=== PATIENT | female | born 1960 | race Caucasian/White ===

== ENCOUNTER 2021-01-04 11:47 | Day surgery (SDC) | payer MEDICARE, OTHER ==
[~2021-01-04] VITALS: Ht 165.1 cm; Wt 62.0 kg
[2021-01-04] MEDS ORDERED: AMLO10 (12:21)
[2021-01-04] MEDS ORDERED: ALBU2.5V5 (12:23)
[2021-01-04] MEDS ORDERED: Biotin800 MCG (12:23)
[2021-01-04] MEDS ORDERED: TUMS500 MG (12:24)
[2021-01-04] MEDS ORDERED: Calcium + Vita1 EACH (12:24)
[2021-01-04] MEDS ORDERED: DILT30 (12:25)
[2021-01-04] MEDS ORDERED: GABA400 (12:26)
[2021-01-04] MEDS ORDERED: ONE-A-DAY VIT200 MC1 (12:26)
[2021-01-04] MEDS ORDERED: EUTHYROX88 MCG (12:26)
[2021-01-04] MEDS ORDERED: OMEP20ER (12:27)
[2021-01-04] MEDS ORDERED: K-Dur20 MEQ (12:27)
[2021-01-04] MEDS ORDERED: ANORO ELLIPTA1 EACH (12:28)
[2021-01-04] MEDS ORDERED: PROM25 (12:28)
[2021-01-04] MEDS ORDERED: QUET200 (12:28)
== END 2021-01-04 14:25 | disposition home or self-care (01) ==
LOC: ORSCSDS 11:47
PROVIDERS: Internal Medicine Gastroenterology
PROC: 0DB68ZX Excision of Stomach, Via Natural or Artificial Opening Endoscopic, Diagnostic (ICD-10-PCS; principal; 2021-01-04 13:30)
DX: K70.30 Alcoholic cirrhosis of liver without ascites (principal); I85.10 Secondary esophageal varices without bleeding; K31.7 Polyp of stomach and duodenum; K21.9 Gastro-esophageal reflux disease without esophagitis; J44.9 Chronic obstructive pulmonary disease, unspecified; Z99.81 Dependence on supplemental oxygen; Z79.899 Other long term (current) drug therapy; F17.210 Nicotine dependence, cigarettes, uncomplicated
CPT/HCPCS: 88305; 88342; J2704; J7120

== ENCOUNTER → 2021-06-24 | Outpatient (CLI) | payer MEDICARE, OTHER ==
[~2021-06-24] MED LIST: ALBU2.5V5; AMLO10; ANORO ELLIPTA1 EACH; Biotin800 MCG; Calcium + Vita1 EACH; DILT30; EUTHYROX88 MCG; GABA400; K-Dur20 MEQ; OMEP20ER; ONE-A-DAY VIT200 MC1; PROM25; QUET200; TUMS500 MG
[2021-06-26 17:11] LABS: HPV 16 Negative (Negative); HPV 18 Negative (Negative); HPV OTHER HR TYPES Positive (Negative)
== END ==
LOC: LAB SHORT 15:10 → LAB 15:10
PROVIDERS: Advanced Practice Midwife
DX: Z01.419 Encounter for gynecological examination (general) (routine) without abnormal findings (principal); Z88.1 Allergy status to other antibiotic agents
CPT/HCPCS: 87624; G0123

== ENCOUNTER 2022-05-01 09:15 | Day surgery (SDC) | payer MEDICARE, OTHER ==
[~2022-05-01] VITALS: Ht 165.1 cm; Wt 52.8 kg
== END 2022-05-01 11:55 | disposition home or self-care (01) ==
LOC: ORSCSDS 09:15
PROVIDERS: Internal Medicine Gastroenterology
PROC: 0DB78ZX Excision of Stomach, Pylorus, Via Natural or Artificial Opening Endoscopic, Diagnostic (ICD-10-PCS; principal; 2022-05-01 10:00)
PROC: 0DB98ZX Excision of Duodenum, Via Natural or Artificial Opening Endoscopic, Diagnostic (ICD-10-PCS; principal; 2022-05-01 10:00)
PROC: 0DJD8ZZ Inspection of Lower Intestinal Tract, Via Natural or Artificial Opening Endoscopic (ICD-10-PCS; principal; 2022-05-01 10:00)
DX: R11.2 Nausea with vomiting, unspecified (principal); R63.4 Abnormal weight loss; K31.7 Polyp of stomach and duodenum; Z80.0 Family history of malignant neoplasm of digestive organs; I10 Essential (primary) hypertension; J44.9 Chronic obstructive pulmonary disease, unspecified; F17.210 Nicotine dependence, cigarettes, uncomplicated; K21.9 Gastro-esophageal reflux disease without esophagitis; Z86.73 Personal history of transient ischemic attack (TIA), and cerebral infarction without residual deficits; E03.9 Hypothyroidism, unspecified; M79.7 Fibromyalgia; K74.60 Unspecified cirrhosis of liver; Z99.81 Dependence on supplemental oxygen; Z79.899 Other long term (current) drug therapy; K44.9 Diaphragmatic hernia without obstruction or gangrene; K64.4 Residual hemorrhoidal skin tags
CPT/HCPCS: 88305; 88342; 93005; 93010; J2405; J2704; J7120

== ENCOUNTER → 2022-09-25 | Outpatient (CLI) | payer MEDICARE, OTHER ==
[2022-09-29 17:09] LABS: HPV 16 Negative (Negative); HPV 18 Negative (Negative); HPV OTHER HR TYPES Positive (Negative)
== END | disposition home or self-care (01) ==
LOC: RAD SHORT 14:25 → LAB 14:25
PROVIDERS: Advanced Practice Midwife
DX: Z01.419 Encounter for gynecological examination (general) (routine) without abnormal findings (principal)
CPT/HCPCS: 87624; 88175

== ENCOUNTER 2023-07-14 13:11 | Emergency (ER) | payer MEDICARE, OTHER ==
[~2023-07-14] VITALS: Ht 165.1 cm; Wt 59.0 kg
[2023-07-14 14:01] LABS: EOSINOPHILS ABSOLUTE AUTO 0.02 K/mm3 (0.00-0.68); EOSINOPHILS PERCENT AUTO 0 % (0-6); IMMATURE GRAN PERCENT AUTO 0 % (0-1); MONOCYTES PERCENT AUTO 6 % (4-13); Platelet Count 153 K/mm3 (150-400)
[2023-07-14 14:16] LABS: BASOPHILS ABSOLUTE AUTO 0.02 K/mm3 (0.00-0.23); BASOPHILS PERCENT AUTO 0 % (0-2); Hemoglobin 19.8 g/dL (11.5-16.0); IMMATURE GRAN ABSOLUTE AUTO 0.04 K/mm3 (0.00-0.10); LYMPHOCYTES ABSOLUTE AUTO 0.71 K/mm3 (0.84-5.20); LYMPHOCYTES PERCENT AUTO 6 % (21-46); MONOCYTES ABSOLUTE AUTO 0.65 K/mm3 (0.16-1.47); Mean Corpuscular HGB 31.3 pg (26.0-34.0); Mean Corpuscular HGB Conc 35.7 g/dL (31.5-36.5); Mean Corpuscular Volume 88 fL (80-100); Mean Platelet Volume 10.4 fL (9.1-12.4); NEUTROPHILS ABSOLUTE AUTO 9.96 K/mm3 (1.96-9.15); NEUTROPHILS PERCENT AUTO 87 % (41-73); RDW Coefficient Variation 14.5 % (11.7-14.2); RDW Standard Deviation 44.7 fL (35.1-46.3); Red Blood Cell Count 6.33 M/mm3 (3.80-5.20)
[2023-07-14 14:20] LABS: Hematocrit 55.5 % (33.0-51.0)
[2023-07-14 14:30] LABS: Albumin, Blood 4.1 g/dL (3.4-5.0); Bilirubin, Total 0.7 mg/dL (0.1-1.0); Bun/Creatinine Ratio 12.6 (12.0-20.0); Calcium, Blood 9.9 mg/dL (8.5-10.1); Creatinine, Blood 0.72 mg/dL (0.40-1.00); Globulin, Blood 4.2 g/dL (2.2-4.0); Potassium, Blood 2.8 mmol/L (3.5-5.5); Total Protein, Blood 8.3 g/dL (6.4-8.2)
[2023-07-14 16:26] LABS: Influenza A, PCR NEGATIVE (NEGATIVE); Influenza B, PCR NEGATIVE (NEGATIVE); Resp Syncytial Virus, PCR NEGATIVE (NEGATIVE); SARS-Cov-2 (COVID-19) PCR, MMC NEGATIVE (NEGATIVE)
[2023-07-14] MEDS ORDERED: Ativan1 MG PO (16:54)
[2023-07-14] MEDS ORDERED: POTA20PAC PO (16:54)
[2023-07-14] MEDS ORDERED: DICY20 PO (16:54)
[2023-07-14] MEDS ORDERED: ONDA4ODT MM (16:54)
[2023-07-14 17:15] VITALS: BP 170/98
== END 2023-07-14 17:32 | disposition home or self-care (01) ==
LOC: ER 13:11
PROVIDERS: Emergency Medicine
DX: F41.9 Anxiety disorder, unspecified (principal); E87.6 Hypokalemia; R10.816 Epigastric abdominal tenderness; R19.7 Diarrhea, unspecified; G47.00 Insomnia, unspecified; J44.9 Chronic obstructive pulmonary disease, unspecified; I10 Essential (primary) hypertension; E03.9 Hypothyroidism, unspecified; F17.200 Nicotine dependence, unspecified, uncomplicated; Z79.899 Other long term (current) drug therapy; Z88.0 Allergy status to penicillin
CPT/HCPCS: 0241U; 71045; 80053; 83690; 84484; 85025; 93005; 93010; 96361; 96374; 96375; 99285-25; A9270; J0780; J2060; J2405; J7030

== ENCOUNTER 2023-07-18 12:06 | Emergency (ER) | payer MEDICARE, OTHER ==
[~2023-07-18] VITALS: Ht 165.1 cm; Wt 59.0 kg
[~2023-07-18 12:06] MED LIST changes: +Ativan1 MG PO; +DICY20 PO; +ONDA4ODT MM; +POTA20PAC PO
[2023-07-18] MEDS ORDERED: TRAZ50 PO (12:40)
[2023-07-18] MEDS ORDERED: VARENICLINE TART1 M2 PO (12:41)
[2023-07-18] MEDS ORDERED: Ativan1 MG PO (12:41)
[2023-07-18] MEDS ORDERED: ESCI20 PO (12:41)
[2023-07-18] MEDS ORDERED: EUTHYROX75 MC1 PO (12:42)
[2023-07-18] MEDS ORDERED: PRAZOSIN HCL1 M2 PO (12:42)
[2023-07-18] MEDS ORDERED: REMERON30 M9 PO (12:43)
[2023-07-18] MEDS ORDERED: AMLODIPINE BES2.5 MG PO (12:43)
[2023-07-18 13:03] LABS: Albumin, Blood 4.3 g/dL (3.4-5.0); Bilirubin, Direct 0.2 mg/dL (0.0-0.3); Bilirubin, Indirect 0.9 mg/dL (0.1-0.7); Bilirubin, Total 1.1 mg/dL (0.1-1.0); Bun/Creatinine Ratio 20.1 (12.0-20.0); Calcium, Blood 9.5 mg/dL (8.5-10.1); Creatinine, Blood 0.45 mg/dL (0.40-1.00); Globulin, Blood 4.2 g/dL (2.2-4.0); Magnesium, Blood 1.6 mg/dL (1.6-2.4); Potassium, Blood 4.1 mmol/L (3.5-5.5); Total Protein, Blood 8.5 g/dL (6.4-8.2)
[2023-07-18 13:10] LABS: Influenza A, PCR NEGATIVE (NEGATIVE); Influenza B, PCR NEGATIVE (NEGATIVE); Resp Syncytial Virus, PCR NEGATIVE (NEGATIVE); SARS-Cov-2 (COVID-19) PCR, MMC NEGATIVE (NEGATIVE)
[2023-07-18 13:43] LABS: BASOPHILS ABSOLUTE AUTO 0.03 K/mm3 (0.00-0.23); BASOPHILS PERCENT AUTO 0 % (0-2); EOSINOPHILS ABSOLUTE AUTO 0.01 K/mm3 (0.00-0.68); EOSINOPHILS PERCENT AUTO 0 % (0-6); Hemoglobin 19.3 g/dL (11.5-16.0); IMMATURE GRAN ABSOLUTE AUTO 0.02 K/mm3 (0.00-0.10); IMMATURE GRAN PERCENT AUTO 0 % (0-1); LYMPHOCYTES ABSOLUTE AUTO 0.68 K/mm3 (0.84-5.20); LYMPHOCYTES PERCENT AUTO 7 % (21-46); MONOCYTES ABSOLUTE AUTO 0.66 K/mm3 (0.16-1.47); MONOCYTES PERCENT AUTO 7 % (4-13); Mean Corpuscular HGB 31.5 pg (26.0-34.0); Mean Corpuscular HGB Conc 35.7 g/dL (31.5-36.5); Mean Corpuscular Volume 88 fL (80-100); Mean Platelet Volume 10.4 fL (9.1-12.4); NEUTROPHILS ABSOLUTE AUTO 8.12 K/mm3 (1.96-9.15); NEUTROPHILS PERCENT AUTO 85 % (41-73); Platelet Count 138 K/mm3 (150-400); RDW Coefficient Variation 13.9 % (11.7-14.2); RDW Standard Deviation 44.5 fL (35.1-46.3); Red Blood Cell Count 6.12 M/mm3 (3.80-5.20); White Blood Cell Count 9.52 K/mm3 (4.00-11.30)
[2023-07-18 16:15] VITALS: BP 155/106
[2023-07-18] MEDS ORDERED: PROMETHAZINE12.5 M1 PO (17:07)
[2023-07-18] MEDS ORDERED: PROM12.5S PR (17:07)
[2023-07-18] MEDS ORDERED: SUCR1 PO (17:10)
== END 2023-07-18 17:55 | disposition home or self-care (01) ==
LOC: ER 12:06
PROVIDERS: Student in an Organized Health Care Education/Training Program
DX: R10.13 Epigastric pain (principal); R11.2 Nausea with vomiting, unspecified; E86.0 Dehydration; F10.21 Alcohol dependence, in remission; K70.30 Alcoholic cirrhosis of liver without ascites; J44.9 Chronic obstructive pulmonary disease, unspecified; I10 Essential (primary) hypertension; E03.9 Hypothyroidism, unspecified; F17.200 Nicotine dependence, unspecified, uncomplicated; Z87.19 Personal history of other diseases of the digestive system; Z99.81 Dependence on supplemental oxygen; Z88.1 Allergy status to other antibiotic agents; Z79.899 Other long term (current) drug therapy; Z20.822 Contact with and (suspected) exposure to COVID-19
CPT/HCPCS: 0241U; 71045; 80048; 80076; 83690; 83735; 84484; 85025; 93005; 93010; 96374; 96375; 99285-25; A9270; C9113; J1790; J2270; J2765

== ENCOUNTER 2023-07-28 10:27 | Day surgery (SDC) | payer MEDICARE, OTHER ==
[~2023-07-28] VITALS: Ht 165.1 cm; Wt 56.4 kg
[~2023-07-28 10:27] MED LIST changes: +AMLODIPINE BES2.5 MG PO; +ESCI20 PO; +EUTHYROX75 MC1 PO; +PRAZOSIN HCL1 M2 PO; +PROM12.5S PR; +PROMETHAZINE12.5 M1 PO; +REMERON30 M9 PO; +SUCR1 PO; +TRAZ50 PO; +VARENICLINE TART1 M2 PO
[2023-07-28] MEDS ORDERED: BUSPIRONE HCL10 M6 PO (11:04)
[2023-07-28] MEDS ORDERED: Ventolin/Prove6.7 GM INH (11:04)
[2023-07-28] MEDS ORDERED: OMEP20ER PO (11:04)
[2023-07-28 12:45] VITALS: BP 110/84
== END 2023-07-28 12:36 | disposition home or self-care (01) ==
LOC: ORSCSDS 10:27
PROVIDERS: Internal Medicine Gastroenterology
PROC: 0DJ08ZZ Inspection of Upper Intestinal Tract, Via Natural or Artificial Opening Endoscopic (ICD-10-PCS; principal; 2023-07-28 11:45)
DX: R10.13 Epigastric pain (principal); K74.60 Unspecified cirrhosis of liver; K44.9 Diaphragmatic hernia without obstruction or gangrene; J44.9 Chronic obstructive pulmonary disease, unspecified; B19.20 Unspecified viral hepatitis C without hepatic coma; Z99.81 Dependence on supplemental oxygen; R63.4 Abnormal weight loss; Z80.0 Family history of malignant neoplasm of digestive organs; Z87.891 Personal history of nicotine dependence; Z79.899 Other long term (current) drug therapy
CPT/HCPCS: J0461; J2001; J2405; J7120; Q9968

== ENCOUNTER → 2023-08-03 | Outpatient (CLI) | payer MEDICARE, OTHER ==
[~2023-08-03] MED LIST changes: +BUSPIRONE HCL10 M6 PO; +OMEP20ER PO; +Ventolin/Prove6.7 GM INH
== END ==
LOC: LAB SHORT 11:43 → LAB 11:43 → LAB FUT 07-22 14:40
DX: K86.0 Alcohol-induced chronic pancreatitis (principal)
CPT/HCPCS: 82710

== ENCOUNTER → 2023-08-13 | Outpatient (CLI) | payer MEDICARE, OTHER ==
[2023-08-18 00:26] LABS: PANCREATIC ELASTASE,FECAL 519 ug/g (>=100)
== END ==
LOC: LAB 08:50 → LAB SHORT 08:50 → LAB FUT 08-04 08:45
PROVIDERS: Internal Medicine Gastroenterology
DX: R63.4 Abnormal weight loss (principal)
CPT/HCPCS: 82653

== ENCOUNTER → 2023-09-07 | Outpatient (CLI) | payer MEDICARE, OTHER ==
[2023-09-08 08:38] LABS: Candida species (DNA Probe) Negative (NEGATIVE); G. vaginalis (DNA Probe) Negative (NEGATIVE); T. vaginalis (DNA Probe) Negative (NEGATIVE)
== END ==
LOC: LAB SHORT 11:40 → LAB 11:40
PROVIDERS: Family Medicine
DX: N89.8 Other specified noninflammatory disorders of vagina (principal)
CPT/HCPCS: 87480; 87510; 87660

== ENCOUNTER 2024-03-16 14:41 | Emergency (ER) | payer MEDICARE, OTHER ==
[~2024-03-16] VITALS: Ht 165.1 cm; Wt 53.5 kg
[2024-03-16 14:50] VITALS: BP 144/97
[2024-03-16] MEDS ORDERED: Acetaminophen 500 MG Tab PO ONE (15:50)
[2024-03-16] MEDS ORDERED: Ketorolac Tromethamine 30mg Vial IM ONE (15:50)
== END 2024-03-16 16:11 | disposition home or self-care (01) ==
LOC: ER 14:41
DX: S63.502A Unspecified sprain of left wrist, initial encounter (principal); J44.9 Chronic obstructive pulmonary disease, unspecified; I10 Essential (primary) hypertension; E03.9 Hypothyroidism, unspecified; F17.210 Nicotine dependence, cigarettes, uncomplicated; W19.XXXA Unspecified fall, initial encounter; Z86.73 Personal history of transient ischemic attack (TIA), and cerebral infarction without residual deficits; Z79.899 Other long term (current) drug therapy; Z79.51 Long term (current) use of inhaled steroids; Z88.1 Allergy status to other antibiotic agents
CPT/HCPCS: 73110; 96372; 99283-25; A9270; J1885